=== PATIENT | female | born 1965 | race Caucasian/White ===

== ENCOUNTER 2017-09-18 08:26 | Day surgery (SDC) | payer MEDICAID ==
[~2017-09-18 08:26] MED LIST: RINGER'S SOLUTION,LACTATED 1,000 ML IV PRN; ceFAZolin SODIUM 1 GM in DEXTROSE 5 % IN WATER 100 ML IV PRN
[2017-09-18] MEDS ORDERED: BUPIVACAINE HCL 50 ML VIAL IJ ONE (10:15)
[2017-09-18] MEDS ORDERED: LIDOCAINE HCL 50 ML VIAL IJ ONE (10:15)
[2017-09-18] MEDS ORDERED: DEXAMETHASONE SOD PHOSPHATE 4 MG/ML VIAL IJ ONE ×2 (10:40→10:49)
[2017-09-18 11:51] VITALS: BP 122/85
== END 2017-09-18 08:27 | disposition home or self-care (01) ==
LOC: AMB 08:26
PROVIDERS: ATTEND Student in an Organized Health Care Education/Training Program
PROC: 0QBN0ZZ Excision of Right Metatarsal, Open Approach (ICD-10-PCS; principal; 2017-09-18 10:00)
DX: M20.21 Hallux rigidus, right foot (principal); E78.5 Hyperlipidemia, unspecified; K21.9 Gastro-esophageal reflux disease without esophagitis; J44.9 Chronic obstructive pulmonary disease, unspecified; K58.9 Irritable bowel syndrome, unspecified; F17.200 Nicotine dependence, unspecified, uncomplicated; Z68.25 Body mass index [BMI] 25.0-25.9, adult